=== PATIENT | male | born 1990 | race Caucasian/White ===

== ENCOUNTER 2020-02-14 16:13 | Emergency (ER) | payer MEDICAID ==
[~2020-02-14] VITALS: Ht 175.3 cm; Wt 74.4 kg
[2020-02-14 16:23] VITALS: BP 127/76
[2020-02-14 17:10] VITALS: BP 127/76
== END 2020-02-14 17:11 | disposition home or self-care (01) ==
LOC: MED 16:13
DX: H10.33 Unspecified acute conjunctivitis, bilateral (principal); F17.210 Nicotine dependence, cigarettes, uncomplicated; F12.90 Cannabis use, unspecified, uncomplicated
CPT/HCPCS: 99283

== ENCOUNTER 2021-02-24 11:51 | Emergency (ER) | payer MEDICAID ==
[~2021-02-24] VITALS: Ht 175.3 cm; Wt 68.9 kg
[~2021-02-24 11:51] MED LIST: NAPR-54 PO
[2021-02-24 11:54] VITALS: BP 161/67
--- NOTE | 2021-02-24 11:58 | NUR ---
AMBULATED TO BED 11
--- NOTE | 2021-02-24 12:07 | NUR ---
31/M BIB SELF WITH C/O RIGHT SIDED FLANK PAIN X3 DAYS. REPORTS NAUSEA AND TWO EPISODES OF VOMITING, STATES HE WAS SEEN HERE 4 MONTHS AGO FOR SIMILAR SYMPTOMS AND WAS TOLD HE HAD KIDNEY STONES. PT STATES HE HAS NOT PASSED THE STONE YET. STATES HE TOOK TYLENOL WITH NO RELIEF, DENIES CP, FEVER, URINARY SYMPTOMS OR CHILLS. NO TENDERNESS WITH PALPATION AND BOWEL SOUNDS ACTIVE MEDHX: DENIES ALLERGIES: DENIES
--- NOTE | 2021-02-24 12:32 | NUR ---
DR. FLORES BEDSIDE EVALUATING PT
[2021-02-24] MEDS ORDERED: KETOROLAC 30 MG/ML VIAL IVP ONE (12:40)
--- NOTE | 2021-02-24 12:55 | NUR ---
20 G IV ESTABLISHED IN L AC. BLOOD WORK COLLECTED AND HANDED TO [facility] TUTOR PEPE
[2021-02-24 13:00] LABS: BASOPHILS # (AUTO) 0.2 K/uL (0.00-0.22); BASOPHILS % (AUTO) 1.9 % (0.0-2.0); EOSINOPHILS # (AUTO) 0.1 K/uL (0-0.4); EOSINOPHILS % (AUTO) 0.8 % (0.0-4.0); HEMATOCRIT 42.7 % (36-52); HEMOGLOBIN 14.4 g/dL (12.0-18.0); MEAN CORPUSCULAR HEMOGLOBIN 30 pg (27-31); MEAN CORPUSCULAR HGB CONC 34 g/dL (33-37); MEAN CORPUSCULAR VOLUME 89.9 fL (80-94); MONOCYTES # (AUTO) 0.5 K/uL (0.8-1.0); MONOCYTES % (AUTO) 5.8 % (1.7-9.3); NEUTROPHILS # (AUTO) 6.3 K/uL (1.8-7.7); NEUTROPHILS % (AUTO) 69.5 % (42.2-75.2); PLATELET COUNT (AUTO) 188 K/uL (140-450); RED BLOOD CELL COUNT(AUTO) 4.75 MIL/uL (4.20-6.10); RED CELL DISTRIBUTION WIDTH 13.8 % (11.6-13.7); WHITE BLOOD COUNT (AUTO) 9.1 K/uL (4.8-10.8)
--- NOTE | 2021-02-24 13:07 | NUR ---
URINE COLLECTED AND WALKED OVER TO LAB
[2021-02-24 13:44] LABS: ALBUMIN 4.4 g/dL (3.4-5.0); ANION GAP 15.5 (8-16); CARBON DIOXIDE 25.5 mmol/L (21-32); CREATININE 1.3 mg/dL (0.6-1.3); TOTAL BILIRUBIN 0.8 mg/dL (0.0-1.0)
--- NOTE | 2021-02-24 13:47 | NUR ---
Patient appears to be resting comfortably in bed WITH EYES CLOSED. Vital Signs within normal limits AND CHARTED. Respirations even and unlabored. PT STATED PAIN RELIEF FELT
[2021-02-24 13:48] LABS: APPEARANCE,URINE CLEAR (CLEAR); BILIRUBIN,URINE 1+ (NEGATIVE); BLOOD, URINE 3+ (NEGATIVE); COLOR,URINE YELLOW (YELLOW); LEUKOCYTE ESTERASE ,URINE NEGATIVE (NEGATIVE); NITRITE, URINE NEGATIVE (NEGATIVE); UGLUCOSE NEGATIVE (NEGATIVE)
[2021-02-24] MEDS ORDERED: TAMS0.4C96 PO (14:18)
[2021-02-24] MEDS ORDERED: NAPR-1704 PO (14:18)
[2021-02-24 14:28] LABS: RBC,URINE TOO NUMEROUS TO COUN /HPF (0-5); WBC,URINE NONE SEEN /HPF (0-5)
[2021-02-24 14:51] VITALS: BP 114/70
--- NOTE | 2021-02-24 14:51 | NUR ---
Patient discharged with v/s stable. Written and verbal after care instructions given and explained. Patient alert, oriented and verbalized understanding of instructions. Ambulatory with steady gait. All questions addressed prior to discharge. ID band removed. Patient advised to follow up with PMD. Rx of NAPROXEN AND FLOMAX given. Patient educated on indication of medication including possible reaction and side effects. Opportunity to ask questions provided and answered.
== END 2021-02-24 14:52 | disposition home or self-care (01) ==
LOC: MED 11:51
DX: N23 Unspecified renal colic (principal); R11.2 Nausea with vomiting, unspecified; F12.90 Cannabis use, unspecified, uncomplicated; Z87.442 Personal history of urinary calculi; Z79.899 Other long term (current) drug therapy
CPT/HCPCS: 36415; 80053; 81001; 85025; 96374; 99283; J1885

== ENCOUNTER 2021-07-09 03:46 | Emergency (ER) | payer MEDICAID ==
[~2021-07-09] VITALS: Ht 175.3 cm; Wt 73.0 kg
[~2021-07-09 03:46] MED LIST changes: +NAPR-1704 PO; +TAMS0.4C96 PO
[2021-07-09 03:58] VITALS: BP 125/95
--- NOTE | 2021-07-09 04:03 | NUR ---
Ambulatory to bed 12 and change to a gown.
--- NOTE | 2021-07-09 04:05 | NUR ---
Dr. Cano at bedside to exam patient.
--- NOTE | 2021-07-09 04:15 | NUR ---
PATIENT AMBULATORY TO RESTROOM FOR URINE SAMPLE
[2021-07-09] MEDS ORDERED: BACITRACIN OINT 500 UNITS/GM PKT TP ONE ×2 (04:20)
[2021-07-09] MEDS ORDERED: CEPH-588 PO (04:23)
[2021-07-09] MEDS ORDERED: IBUP-2213 PO (04:23)
[2021-07-09] MEDS ORDERED: cephALEXin 500 MG CAP PO ONE (04:25)
--- NOTE | 2021-07-09 04:32 | NUR ---
PATIENT CLEARED FOR DIHSCARGE AT THIS TIME. ADVISED TO FOLLOW UP WITH PCP AND RETURN IF CONDITION WORSENS. NO OTHER COMPLAINTS OR CONCERNS AT THIS TIME FOLLOWING DISHCARGE TE[facility]IMG
[2021-07-09 04:33] VITALS: BP 125/95
== END 2021-07-09 04:32 | disposition home or self-care (01) ==
LOC: MED 03:46
DX: S30.812A Abrasion of penis, initial encounter (principal); N48.89 Other specified disorders of penis; N39.0 Urinary tract infection, site not specified; Z79.899 Other long term (current) drug therapy; X58.XXXA Exposure to other specified factors, initial encounter; Y93.89 Activity, other specified; Y92.89 Other specified places as the place of occurrence of the external cause; Y99.8 Other external cause status
CPT/HCPCS: 81002; 99283